=== PATIENT | male | born 1975 | race Caucasian/White ===

== ENCOUNTER → 2024-05-01 07:24 | Outpatient (REF) | payer BC, SELFPAY ==
[2024-05-01 09:35] LABS: % Basophils 0.5 % (0-2); % Eosinophils 1.2 % (0-6); % Immature Granulocytes 0.5 % (0-0.5); % Lymphocytes 11.1 % (20.5-51.1); % Monocytes 6.4 % (1.7-9.3); % Neutrophils 80.3 % (42.2-75.2); Absolute Eosinophils 0.1 10^3/uL (0-0.7); Absolute Lymphocytes 0.9 10^3/uL (1.2-3.4); Absolute Monocytes 0.5 10^3/uL (0.1-0.6); Absolute Neutrophils 6.3 10^3/uL (1.4-6.5); Hematocrit 38.3 % (39.0-52.0); Hemoglobin 12.2 g/dL (13.0-18.0); Mean Corp Hgb Conc. 31.9 g/dL (33.0-37.0); Mean Corpuscular Hgb 29.5 pg (27.0-31.0); Mean Corpuscular Volume 92.7 fL (80.0-94.0); Mean Platelet Volume 10.8 fL (7.4-10.4); Nucleated Red Blood Cells % 0.3 % (-); Platelet Count 142 10^3/uL (130-400); Red Blood Cell Count 4.13 10^6/uL (4.70-6.10); Red Cell Dist. Width 22.5 % (11.5-14.5); White Blood Cell Count 7.8 10^3/uL (4.8-10.8)
[2024-05-01 09:56] LABS: NT-proBNP 721 pg/ml
[2024-05-01 10:06] LABS: ALT (SGPT) 50 U/L (0-50); AST (SGOT) 192 U/L (17-59); Albumin 3.7 g/dl (3.5-5.0); Alkaline Phosphatase 186 U/L (38-126); Blood Urea Nitrogen 6 mg/dl (9-20); Calcium 9.5 mg/dl (8.4-10.2); Carbon Dioxide 32 mmol/L (22-30); Chloride 98 mmol/L (98-107); Glucose 112 mg/dl (70-99); HDL Cholesterol 28 mg/dl; LDL Cholesterol, Calculated 114 mg/dl; Potassium 4.2 mmol/L (3.5-5.1); Sodium 137 mmol/L (135-145); Total Bilirubin 2.4 mg/dl (0.2-1.3); Total Cholesterol 176 mg/dl (50-199); Total Protein 7.3 g/dl (6.3-8.2); Triglyceride 171 mg/dl (10-149); Very Low Density Lipoprotein 34 mg/dl (0-30); eGFR > 60.00
[2024-05-01 10:13] LABS: Anisocytosis 1+; Hypochromasia 1+; Normal RBC Morphology No; Polychromasia 1+; Stomatocytes 1+; Target Cells 1+
[2024-05-01 10:37] LABS: TSH Reflex To Free T4 2.11 uIU/ml (0.47-4.68)
[2024-05-01 11:13] LABS: Folate 2.4 ng/ml (2.76-20); Vitamin B12 512 pg/ml (239-931)
== END ==
LOC: REG 07:24
PROVIDERS: ATTENDING PHYSICIAN Internal Medicine Cardiovascular Disease; FAMILY PHYSICIAN Nurse Practitioner Family
DX: I48.91 Unspecified atrial fibrillation (principal); Z86.79 Personal history of other diseases of the circulatory system; M25.473 Effusion, unspecified ankle; Z86.2 Personal history of diseases of the blood and blood-forming organs and certain disorders involving the immune mechanism; Z00.00 Encounter for general adult medical examination without abnormal findings
CPT/HCPCS: 36415; 80053; 80061; 82607; 82728; 82746; 83880; 84443; 85025

== ENCOUNTER → 2024-05-08 07:05 | Outpatient (REF) | payer BC, SELFPAY ==
[2024-05-08 08:05] LABS: ALT (SGPT) 60 U/L (0-50); AST (SGOT) 239 U/L (17-59); Albumin 3.4 g/dl (3.5-5.0); Alkaline Phosphatase 154 U/L (38-126); Direct Bilirubin 0.8 mg/dl (0.0-0.4); GGTP 1333 U/L (15-73); LDH 233 U/L (120-246); Total Bilirubin 1.4 mg/dl (0.2-1.3); Total Protein 6.7 g/dl (6.3-8.2)
== END ==
LOC: REG 07:05
PROVIDERS: ATTENDING PHYSICIAN Internal Medicine; FAMILY PHYSICIAN Nurse Practitioner Family
DX: D50.9 Iron deficiency anemia, unspecified (principal); R17 Unspecified jaundice
CPT/HCPCS: 36415; 80076; 82977; 83615

== ENCOUNTER → 2024-05-18 15:45 | Outpatient (REF) | payer BC, SELFPAY | LOC: HWRCS 15:45 | PROVIDERS: ATTENDING PHYSICIAN Internal Medicine Cardiovascular Disease; FAMILY PHYSICIAN Nurse Practitioner Family | DX: I48.91 Unspecified atrial fibrillation (principal); Z86.79 Personal history of other diseases of the circulatory system; M25.473 Effusion, unspecified ankle | CPT/HCPCS: 71046; 93306 ==

== ENCOUNTER 2024-05-21 06:19 | Day surgery (SDC) | payer BC, SELFPAY ==
[2024-05-21] VITALS (13 sets, daily range): BP systolic 124–174; BP diastolic 89–116; BMI 33.6
[2024-05-21] MEDS: DUONEB 3 ML INH (11:07)
[2024-05-21] MEDS: TRANDATE 5 MG IV ×3 (11:27→12:25)
== END 2024-05-21 14:15 | disposition home or self-care (01) ==
LOC: GI 06:19
PROVIDERS: ATTENDING PHYSICIAN Internal Medicine
DX: D50.9 Iron deficiency anemia, unspecified (principal); N40.0 Benign prostatic hyperplasia without lower urinary tract symptoms; K57.30 Diverticulosis of large intestine without perforation or abscess without bleeding; K44.9 Diaphragmatic hernia without obstruction or gangrene; K64.9 Unspecified hemorrhoids; D12.3 Benign neoplasm of transverse colon; K63.5 Polyp of colon; Q39.9 Congenital malformation of esophagus, unspecified; K31.89 Other diseases of stomach and duodenum; K25.4 Chronic or unspecified gastric ulcer with hemorrhage; K29.50 Unspecified chronic gastritis without bleeding; K31.9 Disease of stomach and duodenum, unspecified
CPT/HCPCS: 45385; 45380; 43239; 88305; 88342; 94640

== ENCOUNTER → 2024-05-29 10:07 | Outpatient (REF) | payer BC, SELFPAY | LOC: RCS 10:07 | PROVIDERS: ATTENDING PHYSICIAN Internal Medicine Cardiovascular Disease; FAMILY PHYSICIAN Nurse Practitioner Family | DX: I48.91 Unspecified atrial fibrillation (principal); Z86.79 Personal history of other diseases of the circulatory system; M25.473 Effusion, unspecified ankle | CPT/HCPCS: 93225; 93226 ==

== ENCOUNTER → 2024-09-06 07:09 | Outpatient (REF) | payer BC, SELFPAY ==
[2024-09-06 08:16] LABS: % Eosinophils 0.5 % (0-6); % Immature Granulocytes 0.2 % (0-0.5); % Lymphocytes 20.9 % (20.5-51.1); % Monocytes 9.9 % (1.7-9.3); % Neutrophils 67.5 % (42.2-75.2); Absolute Basophils 0.1 10^3/uL (0-0.2); Absolute Lymphocytes 1.2 10^3/uL (1.2-3.4); Absolute Monocytes 0.6 10^3/uL (0.1-0.6); Absolute Neutrophils 3.9 10^3/uL (1.4-6.5); Hematocrit 40.1 % (39.0-52.0); Hemoglobin 13.5 g/dL (13.0-18.0); Mean Corp Hgb Conc. 33.7 g/dL (33.0-37.0); Mean Corpuscular Hgb 32.8 pg (27.0-31.0); Mean Corpuscular Volume 97.6 fL (80.0-94.0); Mean Platelet Volume 9.8 fL (7.4-10.4); Nucleated Red Blood Cells % 0 % (-); Platelet Count 198 10^3/uL (130-400); Red Blood Cell Count 4.11 10^6/uL (4.70-6.10); Red Cell Dist. Width 18.1 % (11.5-14.5); White Blood Cell Count 5.8 10^3/uL (4.8-10.8)
[2024-09-06 08:53] LABS: ALT (SGPT) 57 U/L (0-50); AST (SGOT) 108 U/L (17-59); Albumin 4.2 g/dl (3.5-5.0); Alkaline Phosphatase 116 U/L (38-126); Blood Urea Nitrogen 6 mg/dl (9-20); Calcium 9.7 mg/dl (8.4-10.2); Carbon Dioxide 32 mmol/L (22-30); Chloride 93 mmol/L (98-107); Glucose 86 mg/dl (70-99); Potassium 4.8 mmol/L (3.5-5.1); Sodium 138 mmol/L (135-145); Total Bilirubin 0.6 mg/dl (0.2-1.3); Total Protein 7.3 g/dl (6.3-8.2); eGFR > 60.00
[2024-09-06 10:00] LABS: Folate 14.8 ng/ml (2.76-20)
== END ==
LOC: REG 07:09
PROVIDERS: ATTENDING PHYSICIAN Nurse Practitioner Family
DX: D64.9 Anemia, unspecified (principal); E53.8 Deficiency of other specified B group vitamins; R79.89 Other specified abnormal findings of blood chemistry
CPT/HCPCS: 36415; 80053; 82746; 85025

== ENCOUNTER 2024-10-12 12:24 | Inpatient (IN) | payer BC, SELFPAY ==
[2024-10-12] VITALS (8 sets, daily range): BP systolic 102–164; BP diastolic 65–119; BMI 29.3; BMI 29.8
--- NOTE | 2024-10-12 08:20 | ED.GENMED ---
History of Present Illness
General
Chief Complaint: Weakness
Time Seen by Provider: 10/12/24 08:14
History of Present Illness
History of Present Illness:
Patient is a 49-year-old male with history of A-fib on Eliquis, hypertension presenting to the emergency department for weakness. Patient states for about 2 weeks he has been fatigued. He has been having congestion and decreased p.o. He does
state that he gets up to walk around her work he does be get lightheaded dizzy. For the past few days he has had intermittent diarrhea that is nonbloody. No rashes recent travel or antibiotics or tick bites. No sick contacts. No chest pain. No
shortness of breath. No nausea or vomiting. No abdominal pain. He has been compliant with all his medications. He does know history of a prior GI bleed that required transfusion. He did recently start his Eliquis about 6 months ago.
Past History
Past History
ED Past Medical History: None
ED Past Surgical History: Orthopedic (Left clavicle surgery, bilateral elbow surgery) and Other (Hernia)
Social History
Tobacco: Smoker
Alcohol: None
Drug: None
Personal: Single
Living: alone
Employment: Employed
Phy Exam
Physical Exam
Physical Exam:
GENERAL: in no acute distress
HEENT: normocephalic, extraocular movements intact, moist oral mucosa
NECK: normal inspection
RESPIRATORY: no respiratory distress, clear to auscultation bilaterally
CARDIOVASCULAR: regular rate and rhythm
ABDOMEN/: soft, non-distended, non-tender to palpation (minimal epigastric tenderness), no rebound or guarding
EXTREMITIES: non-tender, no edema/swelling
NEUROLOGIC: awake and alert, moves all extremities
SKIN: warm
Course
Orders/Labs/Results
Orders:
Orders
10/12/24 07:59
EKG [Electrocardiogram (*1)] Urgent
Reason for Study: Atrial Fibrillation
EKG- Treatment ONCE
10/12/24 08:11
Complete Blood Count/With Diff Urgent
Comprehensive Metabolic Panel Urgent
Lipase Urgent
Troponin I Urgent
10/12/24 08:19
0.9% Sodium Chloride 1000 ml [Nss] 1,000 ml IV BOLUS
10/12/24 08:20
CR Chest - 2 Views Urgent
Comment:
Reason For Exam: sob
10/12/24 08:30
COVID-19 Antigen Urgent
Source: Nasal Swab
Influenza A+B Rapid Molecular Urgent
GORGE Source: Nasal Swab
Specimen Description:
10/12/24 08:50
US Abdomen Complete/Upper Urgent
Comment:
Reason For Exam: abnorma lft, elevated lipase
Abnormal Lab Results
10/12/24
08:11
RBC 4.27 L 10^6/uL
(4.70-6.10)
MCV 97.0 H fL
(80.0-94.0)
MCH 34.4 H pg
(27.0-31.0)
RDW 15.5 H %
(11.5-14.5)
MPV 10.5 H fL
(7.4-10.4)
Absolute Lymphs (auto) 0.8 L 10^3/uL
(1.2-3.4)
Absolute Monos (auto) 0.7 H 10^3/uL
(0.1-0.6)
Neutrophils % 80.0 H %
(42.2-75.2)
Lymphocytes % 10.0 L %
(20.5-51.1)
Sodium 130 L mmol/L
(135-145)
Chloride 91 L mmol/L
(98-107)
Creatinine 0.6 L mg/dL
(0.7-1.3)
Glucose 110 H mg/dl
(70-99)
AST 270 H U/L
(17-59)
ALT 71 H U/L
(0-50)
Lipase 760 H U/L
(23-300)
10/12/24 08:11
10/12/24 08:11
Vital Signs
Initial and Last Documented VS:
Initial Vital Signs
Temp Pulse Resp BP Pulse Ox
99 F 75 16 103/78 98
10/12/24 07:03 10/12/24 07:03 10/12/24 07:03 10/12/24 07:03 10/12/24 07:03
Last Documented Vital Signs
Temp Pulse Resp BP Pulse Ox
98.5 F 75 21 143/100 98
10/12/24 08:07 10/12/24 09:00 10/12/24 09:00 10/12/24 09:00 10/12/24 09:00
MDM/Problems Addressed
Differential Diagnosis Includes:
Patient is a 49-year-old man presenting to the emergency department with 2 weeks of fatigue decreased p.o. congestion and intermittent episodes of lightheadedness dizziness that is worse upon standing. Vitals are notable for blood pressure 103/78
and exam does show a soft benign abdomen. Differential is broad but consists of metabolic derangement versus viral illness versus anemia. Will check blood work EKG chest x-ray COVID flu swab. Will give IV fluids.
*Critical Care Note
Total Time (30-74mins, 75-104mins- exclusive of procedures): Not Applicable
Update Note
Update Note:
On reevaluation patient resting comfortably. Blood work does show hyponatremia elevated LFTs as well as elevated lipase. No history of pancreatitis. He does state that he drinks alcohol but has reduced his intake. He drinks about 3 glasses of
wine 2-3 times a week. He has seen GI once for his transaminitis however has not had any workup done as he did not follow-up. On reevaluation he is having mild epigastric tenderness. Certainly could be pancreatitis given the alcohol use. Will
check ultrasound. Anticipate admission.
ED Attending Note
-
Portions of this chart may have been created with voice recognition software.� Occasional wrong word or��sound alike� substitutions may have occurred due to the inherent limitations of voice recognition software.
Discharge Plan
Departure
Patient Disposition: Admit
Date of Disposition: 10/12/24
Time of Disposition: 10:25
Presentation/result/management discussed w/ accepting MD/DO: Hospitalist
Discharge Problem:
Pancreatitis
Prescriptions:
No Action
lisinopril 10 mg Tablet
10 mg PO DAILY
folic acid 1 mg Tablet
1 mg PO DAILY
albuterol 90 mcg/actuation Aerosol
90 mcg INHALATION .Q4H PRN (Reason: wheeze)
Referrals:
Cordelia Amaro CRNP [Family Provider] -
Interventions
Interventions:
*Risk Screen - Suicide Last Done: 10/12/24 07:03
*General Assessment Last Done: 10/12/24 07:03
*Neglect/Abuse Screening Last Done: 10/12/24 07:03
*ED COVID-19 Vaccine History Last Done: 10/12/24 08:07
ED- Cardiac Assessment Last Done: 10/12/24 09:06
ED- Neurological Assessment Last Done: 10/12/24 09:06
ED- Pulmonary Assessment Last Done: 10/12/24 09:06
Discharge Date and Time
Print Language: MONEGASQUE
[2024-10-12 08:25] LABS: % Basophils 0.7 % (0-2); % Eosinophils 0.6 % (0-6); % Immature Granulocytes 0.5 % (0-0.5); % Monocytes 8.2 % (1.7-9.3); Absolute Basophils 0.1 10^3/uL (0-0.2); Absolute Eosinophils 0.1 10^3/uL (0-0.7); Absolute Lymphocytes 0.8 10^3/uL (1.2-3.4); Absolute Monocytes 0.7 10^3/uL (0.1-0.6); Absolute Neutrophils 6.4 10^3/uL (1.4-6.5); Hematocrit 41.4 % (39.0-52.0); Hemoglobin 14.7 g/dL (13.0-18.0); Mean Corp Hgb Conc. 35.5 g/dL (33.0-37.0); Mean Corpuscular Hgb 34.4 pg (27.0-31.0); Mean Platelet Volume 10.5 fL (7.4-10.4); Nucleated Red Blood Cells % 0 % (-); Platelet Count 188 10^3/uL (130-400); Red Blood Cell Count 4.27 10^6/uL (4.70-6.10); Red Cell Dist. Width 15.5 % (11.5-14.5)
[2024-10-12] MEDS: NSS 1000 IV (08:30)
[2024-10-12 08:35] LABS: ALT (SGPT) 71 U/L (0-50); AST (SGOT) 270 U/L (17-59); Albumin 4.2 g/dl (3.5-5.0); Alkaline Phosphatase 116 U/L (38-126); Blood Urea Nitrogen 11 mg/dl (9-20); Calcium 9.8 mg/dl (8.4-10.2); Carbon Dioxide 28 mmol/L (22-30); Chloride 91 mmol/L (98-107); Estimated Creatinine Clearance > 125 ml/min; Glucose 110 mg/dl (70-99); Lipase 760 U/L (23-300); Potassium 4.5 mmol/L (3.5-5.1); Sodium 130 mmol/L (135-145); Total Bilirubin 1.3 mg/dl (0.2-1.3); Total Protein 7.3 g/dl (6.3-8.2); eGFR > 60.00
[2024-10-12 08:46] LABS: Troponin I < 0.012 ng/ml
[2024-10-12 08:51] LABS: COVID-19 Antigen Negative (Negative)
[2024-10-12] MEDS: OMNIPAQUE 50 ML PO (11:24)
--- NOTE | 2024-10-12 11:36 | HPS.HSE ---
Family Physician
-
Family Physician: CONNIE Herrmann
Chief Complaint
-
Weakness
History of Present Illness
49yo M with PMHx of HTN, Afib on eliquis, asthma, anemia came with weakness for 2 weeks, labs concerned for pancreatitis. Drinking Jenny 3times a week appr 0.5 bottle at the night prior to admission
Medical History
Past Medical History
Past Medical History: Reports Other
Additional Past Medical History:
see HPI
Past Surgical History: Reports None
Social History
Tobacco: Smoker
Alcohol: Daily
Drug: None
Family History
Family History: Not pertinent
Allergies / Home Medications
Allergies reflects when Allergies were last updated in [facility].
Home Medications with original date entered in [facility]
Allergy/Medication List:
Allergies
Allergy/AdvReac Type Severity Reaction Status Date / Time
Penicillins Allergy Unknown Verified 10/12/24 07:07
Home Medications
lisinopril 10 mg tablet 10 mg PO DAILY blood pressure 05/21/24
albuterol sulfate 90 mcg/actuation aerosol inhaler 2 puff inhalation R Q6HPRN PRN sob 10/12/24
metoprolol succinate 100 mg tablet,extended release 24 hr (Toprol XL) 100 mg PO DAILY Blood Pressure 10/12/24
Review of Systems
-
A 12 point ROS was completed and negative except as noted: Yes
Constitutional: Reports Fatigue
Physical Exam
Vital Signs
Vital Signs
Temp Pulse Resp BP Pulse Ox
98.5 F 75 21 143/100 99
10/12/24 08:07 10/12/24 09:00 10/12/24 09:00 10/12/24 09:00 10/12/24 11:01
Physical Exam
General: Well Nourished and No Apparent Distress
HEENT: NormoCephalic, Anicteric and Moist mucous membranes
Respiratory: Clear; No Wheezes, Rales or Rhonchi
Cardiac: S1/S2 and Regular Rhythm; No Murmur
GI: Soft, Non Tender, Non Distended and Normal Bowel Sounds
Musculoskeletal: No Clubbing, No Cyanosis and No Edema
Skin: Warm
Neuro: Awake, Alert, Oriented and AO x 3
Psych: Calm
Laboratory Results
-
10/12/24 08:11
10/12/24 08:11
Laboratory Results
Total Bilirubin 1.3 mg/dl (0.2-1.3) 10/12/24 08:11
AST 270 U/L (17-59) H 10/12/24 08:11
ALT 71 U/L (0-50) H 10/12/24 08:11
Alkaline Phosphatase 116 U/L (38-126) 10/12/24 08:11
Troponin I < 0.012 ng/ml 10/12/24 08:11
Lipase 760 U/L (23-300) H 10/12/24 08:11
Data Reviewed
-
Ultrasound: Report Reviewed by me
Lab Data: Labs Reviewed by me
Impression/Plan
-
A/P:
#Weakness, most likely 2/2 Acute alcoholic pancreatitis and poor oral intake
IVF
Full liquis diet
no abd pain - Morphine PRN if any appears
check TSH, Cortisol
CT abd/pelvis
US showed no cholelithiasis
no Hypercalcemia
Check Lipids
COVID-19 and Influenza neg
#Alcohol use
Watch for withdrawal
Thiamine, Folate
Ativan and MSAS
#Afib, unspecified
cont Eliquis. Toprol
Telemetry
#essential HTN
cont lisinopril
#Transaminitis
classic 2:1 ratio of AST:ALT 2/2 alcohol
Check hepatitis serology
DVT ppx lovenox
Full code
I have spent at least 75min reviewing chart, test results, communication with consultants and direct patient care
[2024-10-12] MEDS: LR 1000 IV ×2 (12:00→20:02)
[2024-10-12 13:43] LABS: INR 1.18; PT 15.4 Sec (11.4-14.6)
[2024-10-12 13:44] LABS: Creatine Phosphokinase 32 U/L (55-170); GGTP 1263 U/L (15-73); Magnesium 1.4 mg/dl (1.6-2.3)
[2024-10-12 13:45] LABS: Alcohol None Detected
[2024-10-12 13:51] LABS: B-Hydroxybutyrate 0.13 mmol/L (0.02-0.27)
[2024-10-12 14:16] LABS: Hepatitis B Surface Antigen Negative (Negative)
[2024-10-12 14:33] LABS: Hepatitis B Core Ab, Total Negative (Negative); Hepatitis B Surface Antibody Negative; Hepatitis C Antibody Negative (Negative)
[2024-10-12] MEDS: FOLVITE 1 MG PO (14:38)
[2024-10-12] MEDS: MAGNESIUM SULFATE 50 IV (14:38)
[2024-10-12] MEDS: TOPROL XL 100 MG PO (14:38)
[2024-10-12] MEDS: ZESTRIL 10 MG PO (14:44)
[2024-10-12 17:54] LABS: Hepatitis A Antibody, Total Negative (Negative)
[2024-10-12 18:07] LABS: Urine Albumin Negative (Neg - Trace); Urine Bilirubin Negative (Negative); Urine Character Clear (Clear); Urine Color Yellow; Urine Glucose Negative (Negative); Urine Ketone Negative (Negative); Urine Leukocyte Negative (Negative); Urine Nitrite Negative (Negative); Urine Occult Blood Negative (Negative); Urine Urobilinogen 3+ (Neg - 1+)
[2024-10-12 18:16] LABS: Amphetamines Negative (Negative); Barbiturates Negative (Negative); Benzodiazepines Negative (Negative); Buprenorphine Negative (Negative); Cocaine Negative (Negative); Marijuana Negative (Negative); Methadone Negative (Negative); Methamphetamines Negative (Negative); Opiates Negative (Negative); Phencyclidine Negative (Negative); Tricyclic Antidepressants Negative (Negative)
[2024-10-12] MEDS: THIAMINE INJECTION 200 MG IV (19:59)
[2024-10-12] MEDS: ELIQUIS 5 MG PO (19:59)
[2024-10-13] VITALS (8 sets, daily range): BP systolic 122–167; BP diastolic 89–111
[2024-10-13] MEDS: LR 1000 IV ×2 (01:00→07:47)
[2024-10-13] MEDS: TRANDATE 5 MG IV (06:13)
[2024-10-13 06:41] LABS: % Basophils 0.8 % (0-2); % Eosinophils 2.3 % (0-6); % Immature Granulocytes 0.4 % (0-0.5); % Monocytes 9.4 % (1.7-9.3); % Neutrophils 69.1 % (42.2-75.2); Absolute Eosinophils 0.1 10^3/uL (0-0.7); Absolute Lymphocytes 0.9 10^3/uL (1.2-3.4); Absolute Monocytes 0.5 10^3/uL (0.1-0.6); Absolute Neutrophils 3.3 10^3/uL (1.4-6.5); Hematocrit 35.9 % (39.0-52.0); Hemoglobin 12.9 g/dL (13.0-18.0); Mean Corp Hgb Conc. 35.9 g/dL (33.0-37.0); Mean Corpuscular Hgb 34.2 pg (27.0-31.0); Mean Corpuscular Volume 95.2 fL (80.0-94.0); Mean Platelet Volume 10.5 fL (7.4-10.4); Nucleated Red Blood Cells % 0 % (-); Platelet Count 146 10^3/uL (130-400); Red Blood Cell Count 3.77 10^6/uL (4.70-6.10); Red Cell Dist. Width 15.1 % (11.5-14.5); White Blood Cell Count 4.8 10^3/uL (4.8-10.8)
[2024-10-13 06:56] LABS: NT-proBNP 976 pg/ml
[2024-10-13 07:28] LABS: TSH 1.52 uIU/ml (0.47-4.68)
[2024-10-13] MEDS: ZESTRIL 10 MG PO (07:45)
[2024-10-13] MEDS: FOLVITE 1 MG PO (07:46)
[2024-10-13] MEDS: THIAMINE INJECTION 200 MG IV ×2 (07:46→21:05)
[2024-10-13] MEDS: ELIQUIS 5 MG PO ×2 (07:46→21:05)
[2024-10-13] MEDS: TOPROL XL 100 MG PO (07:46)
[2024-10-13 10:18] LABS: ALT (SGPT) 56 U/L (0-50); AST (SGOT) 170 U/L (17-59); Albumin 3.2 g/dl (3.5-5.0); Alkaline Phosphatase 112 U/L (38-126); Blood Urea Nitrogen 8 mg/dl (9-20); Calcium 9.1 mg/dl (8.4-10.2); Carbon Dioxide 26 mmol/L (22-30); Chloride 93 mmol/L (98-107); Estimated Creatinine Clearance > 125 ml/min; Glucose 94 mg/dl (70-99); Potassium 4.6 mmol/L (3.5-5.1); Sodium 129 mmol/L (135-145); Total Bilirubin 1.2 mg/dl (0.2-1.3); eGFR > 60.00
--- NOTE | 2024-10-13 12:05 | W.PN.HOSP.TC ---
Today's Communication/Plan
-
stop IVF
recheck BMP
Regular diet
Assessment / Plan
Assessment / Plan
49yo M with PMHx of HTN, Afib on eliquis, asthma, anemia came with weakness for 2 weeks, labs concerned for pancreatitis, however with no abd pain and no radiographic findings - unlikely. Advised to increase oral intake, strict alcohol cessation and
follow up with PCP for age appropriate CA screening.
A/P:
#Weakness, most likely 2/2 poor oral intake and hypermagnesemia
IVF
TSH WNL
Cortisol 10.0 - no overt signs of adrenal insufficiency
Recent colonoscopy - patient reported normal. Advised Low dose CT chest and follow up with PCP for age appropriate CA screening
#Elevated lipase 2/2 mild colitis and alcohol abuse
#Pancreatitis ruled out
US showed no cholelithiasis
no Hypercalcemia
triglycerides 171
COVID-19 and Influenza neg
#Hyponatremia
2/2 low solute intake
check urine osm
regular diet
#Alcohol use
Watch for withdrawal
Thiamine, Folate
Ativan and MSAS
counseled on abstinence
#Afib, unspecified
cont Eliquis. Toprol
Telemetry - well controlled
#essential HTN
cont lisinopril
#Transaminitis
#Eleavted GGT
classic 2:1 ratio of AST:ALT 2/2 alcohol
hepatitis serology neg
DVT ppx lovenox
Full code
I have spent at least 55min reviewing chart, test results, communication with consultants and direct patient care
Anticipated Discharge: Within 24 hours
Subjective/Interval History
-
Date of Service: October 13, 2024
Objective Data
-
Labs:
Laboratory Results
10/13/24
05:26
WBC 4.8
Hgb 12.9 L
Hct 35.9 L
Plt Count 146 D
Sodium 129 L
Potassium 4.6
Chloride 93 L
Carbon Dioxide 26
BUN 8 L
Creatinine 0.5 L
Glucose 94
Calcium 9.1
Total Bilirubin 1.2
AST 170 H
ALT 56 H
Alkaline Phosphatase 112
Vital Signs:
Vital Signs
Temp Pulse Resp BP Pulse Ox
98.5 F 64 18 157/105 98
10/13/24 07:45 10/13/24 07:45 10/13/24 07:45 10/13/24 07:45 10/13/24 07:45
I&O
10/12/24 10/13/24 10/14/24
06:59 06:59 06:59
Intake Total 630 / 630
Balance 630 / 630
Review of Systems
-
History Source: Patient
All other systems: Reviewed and negative
Physical Exam
-
General: No Apparent Distress
HEENT: Normocephalic
Respiratory: Clear to Auscultation
Cardiac: Regular Rhythm
GI: Soft, Nontender and Nondistended
Musculoskeletal: No Clubbing, No Cyanosis and No Edema
Neuro: Awake
Psych: Calm
[2024-10-13 14:34] LABS: Osmolality Urine 422 mOsm/kg (300-900)
[2024-10-13 14:55] LABS: Blood Urea Nitrogen 8 mg/dl (9-20); Calcium 9.5 mg/dl (8.4-10.2); Carbon Dioxide 29 mmol/L (22-30); Chloride 89 mmol/L (98-107); Estimated Creatinine Clearance > 125 ml/min; Glucose 173 mg/dl (70-99); Potassium 4.3 mmol/L (3.5-5.1); Sodium 130 mmol/L (135-145); eGFR > 60.00
--- NOTE | 2024-10-13 15:26 | CM ---
Addendum entered by Alma Rosa Edmonds 10/13/24 15:28:
CM consult for D/A
Pt declined [facility] consult
Original Note:
CM met with pt bedside
Pt [place] with his mother in [place] [address]
Pt indep with his ADLs, drives+ and denies use of DMEs
Denies financial insecurities
PCP- Cordelia Amaro
Rx- Ishan-Antoinette
CM observed independence in room and hallway
Discharge Disposition- home, likely no needs- will arrange for ride home friend/family vs [employer]
[2024-10-14 03:00] VITALS: BP 147/100
[2024-10-14 07:30] VITALS: BP 171/116
[2024-10-14 08:16] LABS: Blood Urea Nitrogen 7 mg/dl (9-20); Calcium 9.2 mg/dl (8.4-10.2); Carbon Dioxide 28 mmol/L (22-30); Chloride 93 mmol/L (98-107); Estimated Creatinine Clearance > 125 ml/min; Glucose 100 mg/dl (70-99); Potassium 4.9 mmol/L (3.5-5.1); Sodium 131 mmol/L (135-145); eGFR > 60.00
[2024-10-14] MEDS: FOLVITE 1 MG PO (08:39)
[2024-10-14] MEDS: ELIQUIS 5 MG PO (08:39)
[2024-10-14] MEDS: THIAMINE INJECTION 200 MG IV (08:39)
[2024-10-14] MEDS: ZESTRIL 10 MG PO (08:39)
[2024-10-14] MEDS: TOPROL XL 100 MG PO (08:39)
--- NOTE | 2024-10-14 09:10 | W.PN.HOSP.TC ---
Today's Communication/Plan
-
dc
Assessment / Plan
Assessment / Plan
49yo M with PMHx of HTN, Afib on eliquis, asthma, anemia came with weakness for 2 weeks, labs concerned for pancreatitis, however with no abd pain and no radiographic findings - unlikely. Advised to increase oral intake, strict alcohol cessation and
follow up with PCP for age appropriate CA screening. CT chest without overt tumor. Sodium improved. Medically stable for d/c
A/P:
#Weakness, most likely 2/2 poor oral intake and hypermagnesemia
IVF
TSH WNL
Cortisol 10.0 - no overt signs of adrenal insufficiency
Recent colonoscopy - patient reported normal. Advised Low dose CT chest and follow up with PCP for age appropriate CA screening
#Elevated lipase 2/2 mild colitis and alcohol abuse
#Pancreatitis ruled out
US showed no cholelithiasis
no Hypercalcemia
triglycerides 171
COVID-19 and Influenza neg
#Hyponatremia
2/2 low solute intake with component of ADH 2/2 smoking
No pulmonary malignancy on non-contrast CT chest
regular diet
#Alcohol use
Watch for withdrawal
Thiamine, Folate
Ativan and MSAS
counseled on abstinence
#Afib, unspecified
cont Eliquis. Toprol
Telemetry - well controlled
#essential HTN
cont lisinopril
#Transaminitis
#Elevated GGT
classic 2:1 ratio of AST:ALT 2/2 alcohol
hepatitis serology neg
#Large hiatal hernia
asymptomatic
DVT ppx lovenox
Full code
I have spent at least 55min reviewing chart, test results, communication with consultants and direct patient care
Anticipated Discharge: Today
Subjective/Interval History
-
Date of Service: October 14, 2024
Objective Data
-
Labs:
Laboratory Results
10/14/24
07:13
Sodium 131 L
Potassium 4.9
Chloride 93 L
Carbon Dioxide 28
BUN 7 L
Creatinine 0.6 L
Glucose 100 H
Calcium 9.2
Vital Signs:
Vital Signs
Temp Pulse Resp BP Pulse Ox
98.0 F 61 16 171/116 97
10/14/24 07:30 10/14/24 07:30 10/14/24 07:30 10/14/24 07:30 10/14/24 07:30
I&O
10/13/24 10/14/24 10/15/24
06:59 06:59 06:59
Intake Total 630 / 630 980 / 980
Balance 630 / 630 980 / 980
Review of Systems
-
History Source: Patient
All other systems: Reviewed and negative
Physical Exam
-
General: No Apparent Distress
Neuro: Awake, Alert, Oriented and AO x 3
Psych: Calm
--- NOTE | 2024-10-14 09:16 | W.DCSUMMARY ---
Discharge Summary
Discharge Data
Date of Admission: 10/12/24
Date of Discharge: 10/14/24
-
Pending Results: No
Hospital Course
49yo M with PMHx of HTN, Afib on eliquis, asthma, anemia came with weakness for 2 weeks, labs concerned for pancreatitis, however with no abd pain and no radiographic findings - unlikely. Advised to increase oral intake, strict alcohol cessation and
follow up with PCP for age appropriate CA screening. CT chest without overt tumor. Sodium improved. Medically stable for d/c and no signs of alcohol withdrawal seen on the day of discharge
I have spent at least 37min reviewing chart, test results, communication with consultants and direct patient care
PAtient was managed for:
#Weakness, most likely 2/2 poor oral intake and hypermagnesemia
#Elevated lipase 2/2 mild colitis and alcohol abuse
#Pancreatitis ruled out
#Hyponatremia
#Alcohol use
#Afib, unspecified
#essential HTN
#Transaminitis
#Eleavted GGT
#Large hiatal hernia
Discharge Plan
-
Patient Disposition: Home (Routine Discharge)
Discharge Diagnosis/Procedures: weakness
Diet: Regular and Restrict fluids to 48 oz
Activity: As tolerated
Blood Work: repeat BMP in 1 week with family doctor
Referrals:
Cordelia Amaro CRNP [Family Provider] - in one week
Prescriptions:
New
thiamine HCl (vitamin B1) 100 mg Tablet
100 mg PO DAILY Qty: 30 0RF
Eliquis 5 mg Tablet
5 mg PO BID Qty: 0 0RF
folic acid 1 mg Tablet
1 mg PO DAILY Qty: 30 0RF
Continued
lisinopril 10 mg Tablet
10 mg PO DAILY
metoprolol succinate [Toprol XL] 100 mg Tablet Extended Release 24 Hr
100 mg PO DAILY
albuterol sulfate 90 mcg/actuation Hfa Aerosol Inhaler
2 puff INHALATION R Q6HPRN PRN (Reason: sob)
Discharge Orders:
Discharge Patient (As Directed); Ordered 10/14/24
Ordered By: Ernesto Perkins
Discharge Date and Time
Print Language: IRISH
[2024-10-14 10:57] VITALS: BP 147/97
== END 2024-10-14 11:26 | disposition home or self-care (01) | DRG 641 ==
LOC: 3 WEST ACU 12:24
PROVIDERS: Physician Assistant; ADMITTING PHYSICIAN Internal Medicine; EMERGENCY PHYSICIAN Student in an Organized Health Care Education/Training Program; FAMILY PHYSICIAN Nurse Practitioner Family
DX: E83.41 Hypermagnesemia (principal); E87.1 Hypo-osmolality and hyponatremia; I10 Essential (primary) hypertension; I48.91 Unspecified atrial fibrillation; F10.10 Alcohol abuse, uncomplicated; R74.01 Elevation of levels of liver transaminase levels; D64.9 Anemia, unspecified; K44.9 Diaphragmatic hernia without obstruction or gangrene; J45.909 Unspecified asthma, uncomplicated; F17.200 Nicotine dependence, unspecified, uncomplicated; Z11.52 Encounter for screening for COVID-19; Z79.899 Other long term (current) drug therapy; Z88.0 Allergy status to penicillin
CPT/HCPCS: 71046; 71250; 74177; 76700; 80048; 80053; 80306; 81003; 82010; 82077; 82533; 82550; 82977; 83690; 83735; 83880; 83935; 84100; 84443; 84484; 85025; 85610; 86704; 86706; 86708; 86803; 87340; 87502; 87811; 93005; 96360; 99285; Q9967